=== PATIENT | male | born 1975 | race Two or more races ===

== ENCOUNTER 2024-12-18 14:32 | Outpatient (CLI) | payer OTHER | END 2024-12-18 14:42 | disposition home or self-care (01) | LOC: SONOGRAMA 14:32 | PROVIDERS: ATTEND Orthopaedic Surgery | DX: M25.511 Pain in right shoulder (principal); M75.121 Complete rotator cuff tear or rupture of right shoulder, not specified as traumatic ==

== ENCOUNTER 2024-12-20 06:18 | Outpatient (CLI) | payer OTHER | END 2024-12-20 06:30 | disposition home or self-care (01) | LOC: MRI 06:18 | PROVIDERS: ATTEND Orthopaedic Surgery | DX: M25.562 Pain in left knee (principal) | CPT/HCPCS: 73721 ==